=== PATIENT | male | born 1995 | race Hispanic/Latino ===

== ENCOUNTER 2019-07-20 22:35 | Emergency (ER) | payer SELFPAY ==
--- NOTE | 2019-07-21 08:12 | RAD ---
CHEST 1 VIEW: HISTORY: Trauma. COMPARISON: None. FINDINGS: Subcutaneous emphysema of the left neck. Lungs are clear. No pneumothorax. No effusion. IMPRESSION: 1. Left neck subcutaneous emphysema. 2. Mildly hyperlucent left lung base. This could reflect a left basilar pneumothorax. POS: HOME
== END 2019-07-21 03:00 | disposition home or self-care (01) ==
LOC: EDBD 22:35 → ERS 22:35
DX: S01.01XA Laceration without foreign body of scalp, initial encounter (principal); S21.112A Laceration without foreign body of left front wall of thorax without penetration into thoracic cavity, initial encounter; S41.012A Laceration without foreign body of left shoulder, initial encounter; F17.210 Nicotine dependence, cigarettes, uncomplicated; W22.8XXA Striking against or struck by other objects, initial encounter
CPT/HCPCS: 12002; 71045

== ENCOUNTER 2019-07-30 13:09 | Emergency (ER) | payer SELFPAY | END 2019-07-30 13:31 | disposition home or self-care (01) | LOC: ERS 13:09 | DX: S01.01XD Laceration without foreign body of scalp, subsequent encounter (principal); F17.210 Nicotine dependence, cigarettes, uncomplicated ==

== ENCOUNTER 2019-10-24 23:16 | Observation (INO) | payer OTHER, SELFPAY ==
[2019-10-24 23:46] LABS: #Lymphocytes 0.9 thou/uL (1.20-3.40); #Monocytes 0.7 thou/uL (0.11-0.59); #Neutrophils 15.3 thou/uL (1.40-6.50); %Basophils 0.1 % (0.0-1.0); %Eosinophils 0.1 % (0.0-10.0); %Lymphocytes 5.4 % (21.0-51.0); %Monocytes 3.9 % (0.0-10.0); %Neutrophils 90.5 % (42.0-75.0); Hemoglobin 15.5 g/dL (14.0-18.0); Mean Corpuscular HGB CONC 35.1 g/dL (32.0-36.0); Mean Corpuscular Hemoglobin 34.9 pg (27.0-31.0); Mean Corpuscular Volume 99.3 fL (78.0-98.0); Mean Platelet Volume 7.9 fL (7.4-10.4); Platelet Count 297 thou/uL (130-400); RBC Distribution Width 11.5 % (11.5-14.5); Red Blood Cell (RBC) Count 4.44 mill/uL (4.70-6.10)
[2019-10-25 00:10] LABS: ALT (SGPT) 20 U/L (8-55); AST (SGOT) 23 U/L (5-34); Albumin 5.5 g/dL (3.5-5.0); Alkaline Phosphatase 88 U/L (40-110); Anion Gap 21 mmol/L (10-20); BUN (Urea Nitrogen) 30 mg/dL (8.9-20.6); Bilirubin, Total 0.6 mg/dL (0.2-1.2); CK (CPK) 136 U/L (30-200); Calc. Creatinine Clearance 0 mL/min (70-130); Calcium 10.4 mg/dL (7.8-10.44); Carbon Dioxide 21 mmol/L (22-29); Chloride 101 mmol/L (98-107); Estimated GFR-MDRD 24; Globulin 3.9 g/dL (2.4-3.5); Glucose 160 mg/dL (70-105); Potassium 4.6 mmol/L (3.5-5.1); Protein, Total 9.4 g/dL (6.0-8.3); Sodium 138 mmol/L (136-145)
[2019-10-25] MEDS ORDERED: Ondansetron PF 4 MG/2 ML Vial IVP PRN (03:18)
[2019-10-25] MEDS ORDERED: Acetaminophen 650 MG Suppository PR PRN (03:18)
[2019-10-25] MEDS ORDERED: Ondansetron ODT 4 MG TAB PO PRN (03:18)
[2019-10-25] MEDS ORDERED: Acetaminophen 325 MG TAB PO PRN (03:18)
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
[2019-10-25] MEDS ORDERED: Sodium Chloride 0.9% 1,000 ML IV SCH (03:30)
[2019-10-25 05:23] LABS: #Lymphocytes 1.4 thou/uL (1.20-3.40); #Neutrophils 10.5 thou/uL (1.40-6.50); %Basophils 0.1 % (0.0-1.0); %Lymphocytes 10.8 % (21.0-51.0); Hemoglobin 13.3 g/dL (14.0-18.0); Mean Corpuscular Hemoglobin 34.8 pg (27.0-31.0); Mean Corpuscular Volume 99.3 fL (78.0-98.0); Platelet Count 273 thou/uL (130-400); RBC Distribution Width 11.5 % (11.5-14.5); Red Blood Cell (RBC) Count 3.81 mill/uL (4.70-6.10); White Blood Cell (WBC) Count 12.9 thou/uL (4.8-10.8)
[2019-10-25 05:34] VITALS: BMI 16.0
[2019-10-25 05:41] LABS: Anion Gap 15 mmol/L (10-20); BUN (Urea Nitrogen) 27 mg/dL (8.9-20.6); Calc. Creatinine Clearance 42 mL/min (70-130); Calcium 9.1 mg/dL (7.8-10.44); Carbon Dioxide 22 mmol/L (22-29); Chloride 104 mmol/L (98-107); Estimated GFR-MDRD 45; Glucose 120 mg/dL (70-105); Potassium 4.3 mmol/L (3.5-5.1); Sodium 137 mmol/L (136-145)
[2019-10-25 13:06] LABS: Anion Gap 9 mmol/L (10-20); BUN (Urea Nitrogen) 20 mg/dL (8.9-20.6); Calc. Creatinine Clearance 64 mL/min (70-130); Calcium 8.9 mg/dL (7.8-10.44); Carbon Dioxide 27 mmol/L (22-29); Chloride 105 mmol/L (98-107); Estimated GFR-MDRD 72; Glucose 87 mg/dL (70-105); Potassium 3.9 mmol/L (3.5-5.1); Sodium 137 mmol/L (136-145)
[2019-10-25 16:23] VITALS: BP 116/71; TEMP 98.6
--- NOTE | 2019-10-25 16:28 | CON ---
DATE OF CONSULTATION: REASON FOR CONSULTATION: Acute kidney injury. HISTORY OF PRESENT ILLNESS: This is a 23-year-old gentleman, presented to the hospital with severe dehydration. Creatinine was more than 3. After hydration, creatinine improved to 1.8. The patient was complaining of nausea, vomiting PAST MEDICAL HISTORY: None. SOCIOECONOMIC HISTORY: None. ALLERGIES: REVIEWED. HOME MEDICATIONS: List reviewed. HOSPITAL MEDICATIONS: Reviewed. SOCIAL HISTORY: Socially, the patient drinks alcohol. FAMILY HISTORY: Negative. PHYSICAL EXAMINATION: General: The patient is awake and alert. Vital Signs: Afebrile, pulse 85, breathing at 16, blood pressure . HEENT: Head normocephalic and atraumatic. Eyes intact, no ulcers. Nose intact, no ulcers. Ears intact, no ulcers. Neck: Supple. No JVD. Chest: Symmetrical and clear. Cardiovascular: Shows S1 and S2, no rub, no murmur. Gastrointestinal: Abdomen is soft, bowel sounds positive. Extremities: Show no edema or ulcers. Skin: Shows no rash or petechiae. Musculoskeletal: Shows no joint swelling or stiffness. Genitourinary: Shows no Dorsey or CVA tenderness. Neurologic: Motor intact. Cranial nerves intact. LABORATORY DATA: Showed creatinine 3.2, now it is 1.8. ASSESSMENT: 1. Acute kidney injury, improved. 2. Hypertension, stable. 3. Anemia, stable. 4. Medication based on GFR, appropriate. No indication for dialysis. We will recheck labs again today. The patient can be discharged if labs have returned to normal and no nausea and vomiting. Job ID: [id number]
== END 2019-10-25 17:54 | disposition home or self-care (01) ==
LOC: ERS 23:16 → SURG B 10-25 00:38
PROVIDERS: ADMIT Internal Medicine; ATTEND Internal Medicine
DX: E86.0 Dehydration (principal); N17.9 Acute kidney failure, unspecified; D72.829 Elevated white blood cell count, unspecified; R11.2 Nausea with vomiting, unspecified; R25.2 Cramp and spasm; F17.210 Nicotine dependence, cigarettes, uncomplicated; I10 Essential (primary) hypertension; D64.9 Anemia, unspecified; R53.81 Other malaise
CPT/HCPCS: 36415; 80048; 80053; 82550; 85025; 93005; 96360; 96361; G0378